=== PATIENT | female | born 1995 | race Caucasian/White ===

== ENCOUNTER 2016-10-23 16:27 | Emergency (ER) | payer BC ==
--- NOTE | ~2016-10-23 | ER ---
[facility] AGE[facility] 21 Y [address] ROOM: [place] [id number] LOCATION: [facility] ADMIT DATE: 10/23/2016 ER/Outpatient Report DISCHARGE DATE: 10/23/2016 FAMILY PHYSICIAN: Ryley Dillard ATTENDING PHYSICIAN: Hafsa Ontiveros Time of Arrival: 1627 hours. Time of Evaluation: 1645 hours. CHIEF COMPLAINT: Back pain, nausea, and vomiting. HISTORY OF PRESENT ILLNESS: This is a 21-year-old female who presents to the ER, who states she has been dealing with on and off again right flank pain. She is from the [facility] and has been seen by her primary care physician in the emergency room for 2 different occasions. She was told at the beginning of October that she had a kidney stone. She states that her symptoms have improved, but then her pain started to come back, so they thought they should get it checked out since she is going to be attending college here in [place]. She has had a little troubles with urination. She states her back pain is in the mid back, radiates around the right flank. She has had some nausea. No vomiting. She states her last bowel movement was yesterday and was normal. She has not been running any fevers at home. They did give her prescription for Withams and she has been using that. The last time she used it was yesterday. She denies any other problems at this time. ALLERGIES: NO KNOWN ALLERGIES. MEDICATIONS: Please see medication list nurse's notes. PAST MEDICAL HISTORY: Depression. PAST SURGERIES: None. SOCIAL HISTORY: Denies smoking, drug, or alcohol use. REVIEW OF SYSTEMS: All systems reviewed and were negative with the exception of those discussed in the HPI. PATIENT'S NAME: [facility] AGE: 21 Y [address] ROOM: [place] [id number] LOCATION: [facility] ADMIT DATE: 10/23/2016 ER/Outpatient Report DISCHARGE DATE: 10/23/2016 FAMILY PHYSICIAN: Ryley Dillard ATTENDING PHYSICIAN: Hafsa Ontiveros PHYSICAL EXAMINATION: VITAL SIGNS: Height 5 feet and 4 inches stated, weight 84.9 kg taken, blood pressure is 115/73, pulse 66, respirations 18, temperature 97.5 degrees tympanically, and saturations 97% on room air. [place] Coma Score is 15. GENERAL: Alert, calm, well-developed female, in no obvious distress. HEENT: Head normocephalic. Does display moist mucous membranes. LUNGS: Clear to auscultation bilaterally. HEART: Regular rate and rhythm. ABDOMEN: Soft. She has some slight tenderness to the right mid abdomen. She does not have any guarding. No rebound tenderness. She has good bowel sounds throughout. No masses were palpated. EXTREMITIES: No clubbing or cyanosis. Has full range of motion of all limbs. LABORATORY DATA AND X-RAYS: CBC: White count is 6.4, hemoglobin is 13.1, and platelets 307. CMS was unremarkable. Urinalysis, UA micro, white blood cells 2 to 5, red blood cells 0 to 2, epithelial 5 to 10, leukocytes 100, nitrites were negative. Urine HCG was negative. We did do a CT scan, she has a 3 x 2 mm kidney stone in the right ureterovesical junction causing minimal right hydronephrosis. IMPRESSION: A 3 x 2 mm stone at the ureterovesical junction. ASSESSMENT AND PLAN: The patient rested comfortably here her entire stay and she does not require any further pain medication. I advised her to continue to push fluids. She needs to continue to strain her urine. I advised that she may take her Withams every 4 hours if needed and may alternate that with ibuprofen and she needs to follow up with her primary care physician or Urology for followup care. The patient and the patient's mother understand and agree with care. CHUN JANG PA-C FOR MD ENRIQUE TINOCO/jeannette /[id number] d: 10/24/1640 t: 10/31/162040, OUTPATIENT REPORT
[2016-10-23 17:05] LABS: BILIRUBIN URINE NEGATIVE (NEGATIVE); BLOOD URINE 25 /UL (NEGATIVE); COLOR URINE YELLOW (YELLOW); GLUCOSE URINE NEGATIVE (NEGATIVE); KETONE URINE 15 mg/dL (NEGATIVE); LEUKOCYTES URINE 100 /UL (NEGATIVE); NITRITE URINE NEGATIVE (NEGATIVE); PROTEIN URINE NEGATIVE (NEGATIVE); TURBIDITY URINE CLEAR (CLEAR); UROBILINOGEN URINE NORMAL (NORMAL)
[2016-10-23 17:12] LABS: BACTERIA URINE FEW (NEGATIVE); RBC URINE 0-2 #/HPF (NEGATIVE)
[2016-10-23 17:14] LABS: BASOPHIL % 0.3 %; EOSINOPHIL # 0.2 K/uL (0.0-0.5); EOSINOPHIL % 3.1 %; HEMATOCRIT 36.9 % (33.0-46.0); HEMOGLOBIN 13.1 g/dL (11.0-15.0); IMMATURE GRANULOCYTE % 0.2 %; LYMPHOCYTE # 1.5 K/uL (0.8-4.0); LYMPHOCYTE % 22.7 %; MCH 28.1 pg (27.0-34.0); MCHC 35.5 gm/dL (32.0-36.5); MCV 79.2 fl (83.0-98.0); MONOCYTE # 0.4 K/uL (0.0-1.0); MONOCYTE % 6.7 %; MPV 10.2 fl (9.4-12.4); NEUTROPHIL # (ANC) 4.3 K/uL (1.8-7.8); NRBC % 0 /100WBC (0-0.00); PLATELET COUNT 307 K/uL (150-450); RBC 4.66 M/uL (3.50-5.00); RDW-CV 12.8 % (11.9-14.6); WBC 6.4 K/uL (4.0-11.0)
[2016-10-23 17:30] LABS: ALK PHOS 84 IU/L (33-138); ALT 17 IU/L (12-78); ANION GAP 10.7 (10.0-19.0); AST 15 IU/L (10-40); BLOOD UREA NITROGEN 8 mg/dL (6-24); CALCIUM 8.8 mg/dL (8.5-10.5); CHLORIDE 106 mMol/L (96-110); CO2 26 mMol/L (22-32); CREATININE 0.7 mg/dL (0.5-1.1); POTASSIUM 3.7 mMol/L (3.7-5.1); SODIUM 139 mMol/L (135-145); TOTAL BILIRUBIN 0.6 mg/dL (0.0-1.5); TOTAL PROTEIN 7.6 g/dL (6.0-8.4)
== END 2016-10-23 17:33 | disposition disaster alternative care site (69) ==
LOC: GMED 16:27
PROVIDERS: Physician Assistant Medical
DX: N13.2 Hydronephrosis with renal and ureteral calculous obstruction (principal); F32.9 Major depressive disorder, single episode, unspecified; Z79.899 Other long term (current) drug therapy